=== PATIENT | female | born 1985 | race Caucasian/White ===

== ENCOUNTER 2017-02-09 18:26 | Emergency (ER) | payer OTHER ==
[~2017-02-09] VITALS: Ht 167.6 cm; Wt 59.0 kg
--- NOTE | 2017-02-09 18:27 | NUR ---
Placed in room 03 . Placed on quality assurance monitor, blood pressure machine and pulse oximeter. To gown for exam. Side rails up. Report given to Almita AIKEN
--- NOTE | 2017-02-09 18:28 | NUR ---
Dr. Bray at the bedside evaluating Pt. Currently awaiting new orders.
[2017-02-09] MEDS ORDERED: NACL 0.9% 1,000 ML IV ONE (18:30)
[2017-02-09] MEDS ORDERED: ONDANSETRON HCL 4 MG/2 ML VIAL IVP ONE (18:30)
--- NOTE | 2017-02-09 18:30 | NUR ---
Received Pt in bed 3. Pt was brought in by framing specialist and regulator pin inserter. Pt c/o chest pain and headache 6/10, sharp and aching, nausea. Pt was positve ETOH. Breath smells of ETOH. Pt appears lethgaric, eyes droopy, speech slurred. Pt has poor attention span. Pt unable to follow simple commands. Pt stated she had 4 beers to drink today.
[2017-02-09 18:34] VITALS: BP_SYST 129
[2017-02-09 18:56] LABS: CREATININE 0.81 mg/dL (0.55-1.30)
[2017-02-09 19:01] LABS: ALBUMIN 4.6 g/dL (3.4-4.8); TOTAL BILIRUBIN 0.5 mg/dL (0.0-1.0); TOTAL PROTEIN, SERUM 8.2 g/dL (6.4-8.3)
--- NOTE | 2017-02-09 19:05 | NUR ---
Report recieved by Almita AIKEN. Patient appears stable. PD at bedside. Will assume care at this time.
[2017-02-09 19:20] VITALS: BP_SYST 124
--- NOTE | 2017-02-09 19:20 | NUR ---
Patient given written and verbal discharge instructions and verbalizes understanding. Patient discharged in police custody. [facility] amb[facility]. ER MD discussed with patient the results and treatment provided. Patient in stable condition. ID arm band removed. IV catheter removed intact and dressing applied, no active bleeding. No Rx given. Patient educated on pain management and to follow up with PMD. Pain Scale 0/10. Opportunity for questions provided and answered.
== END 2017-02-09 19:20 ==
LOC: SED 18:26
DX: R07.89 Other chest pain (principal)
CPT/HCPCS: 36415; 80053; 84484; 93005; 96361; 96374; 99285; J2405; J7030